=== PATIENT | male | born 1960 | race Caucasian/White ===

== ENCOUNTER → 2017-05-28 | Outpatient (CLI) | payer BC, OTHER ==
[~2017-05-28] MED LIST: ACID REDUCER 1150 MG PO; ATIVAN1 MG PO; AUGMENTIN875 MG PO; CALCIUM 600 +1 EAC4 PO; COLACE100 MG PO; COMPAZINE5 MG PO; DILAUDID2 MG PO; DILAUDID4 MG PO; DILAUDID8 MG PO; DURAGESIC100 MCG TD; FENTANYL1 EA12 TD; FLOMAX0.4 MG PO; HYDROMORPHONE HC4 MG PO; IBUPROFEN800 MG PO; LYRICA150 MG PO; LYRICA200 MG PO; METHADONE10 MG PO; MOBIC15 MG PO; MORPHINE SULFAT60 M1 PO; OXAYDO5 MG PO; OXYCODONE HCL20 M1 PO; SENNA-DOCUSATE1 EAC1 PO; ZOFRAN8 MG PO
== END | disposition home or self-care (01) ==
LOC: CDC 09:04
DX: Z01.810 Encounter for preprocedural cardiovascular examination (principal); C20 Malignant neoplasm of rectum; R94.31 Abnormal electrocardiogram [ECG] [EKG]
CPT/HCPCS: 93000

== ENCOUNTER 2017-05-29 09:29 | Day surgery (SDC) | payer BC, OTHER ==
[~2017-05-29] VITALS: Ht 170.2 cm; Wt 74.8 kg
[~2017-05-29 09:29] MED LIST changes: -FLOMAX0.4 MG PO; -HYDROMORPHONE HC4 MG PO; -SENNA-DOCUSATE1 EAC1 PO
[2017-05-29] MEDS ORDERED: FLOMAX0.4 MG PO (10:08)
[2017-05-29] MEDS ORDERED: SENNA-DOCUSATE1 EAC1 PO (10:10)
[2017-05-29 10:24] VITALS: BP 127/61
[2017-05-29] MEDS ORDERED: HYDROMORPHONE HC4 MG PO (14:01)
[2017-05-29 15:44] VITALS: BP 116/61
[2017-05-29 16:19] VITALS: BP 100/57
== END 2017-05-29 16:25 | disposition home or self-care (01) ==
LOC: SDC
DX: G89.3 Neoplasm related pain (acute) (chronic) (principal); C20 Malignant neoplasm of rectum; C78.00 Secondary malignant neoplasm of unspecified lung; K21.9 Gastro-esophageal reflux disease without esophagitis; Z93.3 Colostomy status; Z87.891 Personal history of nicotine dependence
CPT/HCPCS: 72020; 76000; 87070; 87205; C1755; J0131; J0690; J1100; J1170; J2250; J2274; J3010